=== PATIENT | female | born 1990 | race Hispanic/Latino ===

== ENCOUNTER 2017-08-20 20:55 | Emergency (ER) | payer MEDICARE ==
[2017-08-20 21:07] VITALS: BMI 22.0
[2017-08-20 21:09] VITALS: BP 106/72; PULSE 59; RESP 16; TEMP 98; O2SAT 98
[2017-08-20] MEDS ORDERED: Absorbable Gelatin Sponge Size 12-7 TP STA (21:48)
--- NOTE | 2017-08-20 21:48 | ED PDOC ---
HPI: Wound Care - HPI Time Seen by Provider: 08/20/17 21:14 Chief Complaint (Nursing): Abnormal Skin Integrity Chief Complaint (Provider): skin avulsion History Per: Patient Additional Complaint(s): 27-year-old right-hand dominant female presents with skin avulsion to right fourth digit sustained when she was slicing food and accidentally sliced her finger using a mandolin knife. Patient is up-to-date with tetanus. She applied pressure dressing and came to ED. Past Medical History Reviewed: Historical Data, Nursing Documentation, Vital Signs Vital Signs: Last Vital Signs Temp 98.0 F 08/20/17 21:07 Pulse 59 L 08/20/17 21:07 Resp 16 08/20/17 21:07 BP 106/72 08/20/17 21:07 Pulse Ox 98 08/20/17 21:07 - Medical History PMH: No Chronic Diseases - Surgical History Surgical History: No Surg Hx - Family History Family History: States: No Known Family Hx - Living Arrangements Living Arrangements: With Friends/Others - Social History Current smoker - smoking cessation education provided: No Alcohol: None Drugs: Denies - Immunization History Hx Tetanus Toxoid Vaccination: Yes - Allergies Allergies/Adverse Reactions: Allergies Allergy/AdvReac Type Severity Reaction Status Date / Time No Known Allergies Allergy Verified 08/20/17 21:06 Review of Systems ROS Statement: Except As Marked, All Systems Reviewed And Found Negative Skin: Positive for: Other (skin avulsion right 4th digit) Physical Exam - Reviewed Nursing Documentation Reviewed: Yes Vital Signs Reviewed: Yes - Physical Exam Appears: Positive for: Well, Non-toxic, No Acute Distress Skin: Negative for: Rash Eye Exam: Positive for: Normal appearance Extremity: Positive for: Other (1 cm skin avulson noted to distal aspect of right 4th digit with minimal active bleeding, fingernail intact) Neurologic/Psych: Positive for: Alert, Oriented - ECG O2 Sat by Pulse Oximetry: 98 Pulse Ox Interpretation: Normal Medical Decision Making Medical Decision Makin27 year old with skin avulsion Plan: PO tylenol Gel foam dressing applied to affected to area, secured with sterile gauze. Wound care instructions given. Disposition - Clinical Impression Clinical Impression: Skin avulsion - Patient ED Disposition Is Patient to be Admitted: No Counseled Patient/Family Regarding: Need For Followup - Disposition Referrals: [facility], [facility] [Outside] Disposition: Routine/Home Disposition Time: 22:20 Condition: STABLE Additional Instructions: Keep dressing in place for 24-48 hours. After that time remove gauze and foam and allow them to heal further. Tylenol for pain as needed. Follow-up with primary doctor as needed. Instructions: Skin Abrasions (DC) Forms: [employer] ([employer])
[2017-08-20] MEDS ORDERED: Absorbable Gelatin Sponge Size 12-7 ONE (22:32)
== END 2017-08-20 22:42 | disposition home or self-care (01) ==
LOC: H.ER 20:55
DX: S61.214A Laceration without foreign body of right ring finger without damage to nail, initial encounter (principal); W26.0XXA Contact with knife, initial encounter; Y93.G1 Activity, food preparation and clean up